=== PATIENT | female | born 1950 | race Caucasian/White ===

== ENCOUNTER 2024-06-20 21:28 | Emergency (ER) | payer OTHER, SELFPAY ==
[2024-06-20 21:31] VITALS: BP 155/81; BMI 26.6
[2024-06-20 21:34] VITALS: BP 155/81
[2024-06-20 22:00] VITALS: BP 148/83
--- NOTE | 2024-06-20 22:55 | ED.GENMED ---
History of Present Illness
General
Chief Complaint: Overdose Intentional
Source: patient
Exam Limitations: none
Time Seen by Provider: 06/20/24 22:02
Nursing documentation reviewed up to this point in time: agreed with
History of Present Illness
History of Present Illness:
Patient presents to ED for an evaluation after intentional ingestion of her 's medications, i.e. valsartan/HCTZ (160mg/12.5mg) and Percocet. Patient states that she took approximately 20 tablets of blood pressure medication and 2 to 3
tablets of Percocet. Patient reports having been admitted and treated at psychiatric facility recently secondary to depression. Patient has had previous suicidal attempts. Denies fever. Denies headache. Denies dizziness. Denies chest pain.
Denies shortness of breath. Denies abdominal pain. Denies nausea or vomiting. Denies recent illness.
Review of Systems
Review of Systems
Allergies reviewed?: Yes
All Other Systems: ROS reviewed and negative except as documented in HPI and ROS
Constitutional: Reports no symptoms
EENT: Reports no symptoms
Respiratory: Reports no symptoms
Cardiac: Reports no symptoms
ABD/GI: Reports no symptoms
Musculoskeletal: Reports no symptoms
Skin: Reports no symptoms
Neurological: Reports no symptoms
Psychiatric: Reports depression and suicidal
Phy Exam
Physical Exam
Physical Exam:
Physical Exam
General: no apparent distress, not acutely ill. afebrile
Head: nc/at. eomi
Neck: supple. no meningeal signs
Heart: s1/s2 regular rate and rhythm, no murmur. equal radial pulses.
Lungs: no acute respiratory distress. clear bilaterally
Abdomen: normal bowel sounds. not tender.
Neuro: alert and oriented. no focal neurological deficits
Skin: no rash
Psychiatric: well kept. interactive and cooperative
Extremities: no edema. no calf tenderness.
Course
Orders/Labs/Results
Orders:
Orders
06/20/24 22:51
Crisis Consult Urgent
Reason for Consult: SI attempt
06/20/24 22:54
Electrocardiogram (*1) Urgent
Reason for Study: QTc Monitoring
Bedside Glucose- Treatment ONCE
06/20/24 22:55
EKG- Treatment ONCE
06/20/24 23:18
Acetaminophen Urgent
Alcohol Urgent
Complete Blood Count/No Diff Urgent
Comprehensive Metabolic Panel Urgent
Fentanyl, Urine Urgent
Salicylate Urgent
Urine Drug Abuse Screen Urgent
Date Specimen was Collected: 06/20/24
Time Specimen was Collected: 23:13
Abnormal Lab Results
06/20/24 06/20/24
23:18 23:33
MPV 11.0 H fL
(7.4-10.4)
Glucose 102 H mg/dl
(70-99)
Calcium 10.3 H mg/dl
(8.4-10.2)
Total Bilirubin 1.9 H mg/dl
(0.2-1.3)
Salicylates < 1.0 L mg/dl
(2.0-20.0)
Urine Opiates Screen Positive H
(Negative)
Acetaminophen < 10 L ug/ml
(10-30)
U Benzodiazepines Scrn Positive H
(Negative)
POC Glucose 119 H mg/dl
(70-99)
06/20/24 23:18
06/20/24 23:18
Vital Signs
Initial and Last Documented VS:
Initial Vital Signs
Temp Pulse Resp BP Pulse Ox
98.3 F 85 17 155/81 98
06/20/24 21:31 06/20/24 21:31 06/20/24 21:31 06/20/24 21:31 06/20/24 21:31
Last Documented Vital Signs
Temp Pulse Resp BP Pulse Ox
98.3 F 83 13 134/76 93
06/20/24 21:31 06/21/24 00:00 06/21/24 00:00 06/21/24 00:00 06/21/24 00:00
MDM/Problems Addressed
MDM/Problems Addressed:
Discussed with [facility] shellfish bed worker () and discussed all findings. As pt remains asymptomatic > 6hrs ingestion, pt can be medically cleared for psychiatric evaluation/treatment.
Pt evaluated by [facility] - patient agreeable to in-patient psychiatric treatment. Backup 302 petition, to be filed by chip loft worker.
*Critical Care Note
Total Time (30-74mins, 75-104mins- exclusive of procedures): Not Applicable
ED Attending Note
-
Portions of this chart may have been created with voice recognition software.� Occasional wrong word or��sound alike� substitutions may have occurred due to the inherent limitations of voice recognition software.
Discharge Plan
Departure
Patient Disposition: [facility]
Date of Disposition: 06/21/24
Time of Disposition: 00:13
Discharge Problem:
Depression, Suicide attempt by drug overdose
Referrals:
Tracey Sanchez MD [Family Provider] -
Interventions
Interventions:
*Risk Screen - Suicide Last Done: 06/20/24 21:31
*General Assessment Last Done: 06/20/24 21:31
*Neglect/Abuse Screening Last Done: 06/20/24 21:31
ED- Fall Risk Assessment Last Done: 06/20/24 21:41
*ED COVID-19 Vaccine History Last Done: 06/21/24 00:25
*Nursing Disposition Last Done: 06/21/24 00:25
ED- Cardiac Assessment Last Done: 06/20/24 23:30
ED- Neurological Assessment Last Done: 06/20/24 23:30
ED-Psychological Assessment Last Done: 06/20/24 21:41
ED- Pulmonary Assessment Last Done: 06/20/24 23:30
Discharge Date and Time
Discharge Date/Time: 06/21/24 00:25
Print Language: [employer]INE[employer]
[2024-06-20 23:00] VITALS: BP 128/77
[2024-06-20 23:30] LABS: Hematocrit 39.6 % (37.0-47.0); Hemoglobin 13.5 g/dL (12.0-16.0); Mean Corp Hgb Conc. 34.1 g/dL (33.0-37.0); Mean Corpuscular Hgb 30.2 pg (27.0-31.0); Mean Corpuscular Volume 88.6 fL (81.0-99.0); Platelet Count 286 10^3/uL (130-400); Red Blood Cell Count 4.47 10^6/uL (4.20-5.40); Red Cell Dist. Width 13.2 % (11.5-14.5); White Blood Cell Count 7.7 10^3/uL (4.8-10.8)
[2024-06-20 23:35] LABS: Glucose - Point of Care 119 mg/dl (70-99)
[2024-06-20 23:42] LABS: ALT (SGPT) 35 U/L (0-35); AST (SGOT) 35 U/L (14-36); Acetaminophen < 10 ug/ml (10-30); Albumin 4.4 g/dl (3.5-5.0); Alkaline Phosphatase 98 U/L (38-126); Blood Urea Nitrogen 10 mg/dl (7-17); Calcium 10.3 mg/dl (8.4-10.2); Carbon Dioxide 27 mmol/L (22-30); Chloride 102 mmol/L (98-107); Estimated Creatinine Clearance 58 ml/min; Glucose 102 mg/dl (70-99); Potassium 3.5 mmol/L (3.5-5.1); Salicylate < 1.0 mg/dl (2.0-20.0); Sodium 138 mmol/L (135-145); Total Bilirubin 1.9 mg/dl (0.2-1.3); Total Protein 6.9 g/dl (6.3-8.2); eGFR > 60.00
[2024-06-20 23:43] LABS: Alcohol None Detected
[2024-06-20 23:45] LABS: Amphetamines Negative (Negative); Barbiturates Negative (Negative); Benzodiazepines Positive (Negative); Buprenorphine Negative (Negative); Cocaine Negative (Negative); Methadone Negative (Negative); Methamphetamines Negative (Negative)
[2024-06-20 23:46] LABS: Marijuana Negative (Negative); Opiates Positive (Negative); Phencyclidine Negative (Negative); Tricyclic Antidepressants Negative (Negative)
[2024-06-20 23:55] LABS: Fentanyl, Urine Negative (Negative)
[2024-06-21] VITALS: BP 134/76
== END 2024-06-21 00:25 ==
LOC: EMR 21:28
PROVIDERS: EMERGENCY PHYSICIAN Emergency Medicine; FAMILY PHYSICIAN Internal Medicine
DX: T46.5X2A Poisoning by other antihypertensive drugs, intentional self-harm, initial encounter (principal); T40.2X2A Poisoning by other opioids, intentional self-harm, initial encounter; Y92.9 Unspecified place or not applicable; Z91.51 Personal history of suicidal behavior; F32.A Depression, unspecified
CPT/HCPCS: 99283; 80053; 80143; 80179; 80306; 80307; 82077; 82962; 85027; 93005